=== PATIENT | male | born 1985 | race American Indian/Alaskan Native ===

== ENCOUNTER 2017-08-05 11:46 | Emergency (ER) | payer OTHER ==
--- NOTE | 2017-08-05 12:38 | Emergency Department Report ---
Chief Complaint: Chest Pain Stated Complaint: CHEST PAIN Time Seen by Provider: 08/05/17 12:35 - HPI History of Present Illness: Patient presents to ED with c/o intermittent left sided chest pain and dyspnea with exertion x 3 weeks; this morning in the bathroom after finishing urinating , he had a brief syncopal episode lasting seconds and he fell down, but denies hitting head; denies cough, fevers and N/V - ROS Review of Systems: Negative except for those stated in HPI - Exam Vital Signs: Vital Signs 08/05/17 12:08 Temperature 98.6 F Pulse Rate 71 Respiratory 18 Rate Blood Pressure 100/70 O2 Sat by Pulse 99 Oximetry Physical Exam: NAD RRR CTAB MSE screening note: Focused history and physical exam performed. Due to findings the following was ordered: EKG, labs, CXR Patient to be seen by provider in Main ED ED Disposition for MSE Condition: Stable
[2017-08-05 12:40] LABS: Basophils % (Auto) 1.1 % (0.0-1.8); Eosinophils % (Auto) 4.7 % (0.0-4.3); Hematocrit 41.7 % (35.5-45.6); Hemoglobin 13.9 gm/dl (11.8-15.2); Mean Corpuscular HGB Conc 33 % (32-34); Mean Corpuscular Hemoglobin 30 pg (28-32); Mean Corpuscular Volume 88 fl (84-94); Platelet Count 259 K/mm3 (140-440); Red Blood Count 4.71 M/mm3 (3.65-5.03); Red Cell Distribution Width 13.8 % (13.2-15.2); White Blood Count 5.6 K/mm3 (4.5-11.0)
[2017-08-05 12:54] LABS: Anion Gap 17 mmol/L; BUN/Creatinine Ratio 13; Blood Urea Nitrogen 10 mg/dL (9-20); Carbon Dioxide 26 mmol/L (22-30); Chloride 101.8 mmol/L (98-107); Glucose 84 mg/dL (75-100); Potassium 3.7 mmol/L (3.6-5.0); Sodium 141 mmol/L (137-145)
--- NOTE | 2017-08-05 13:39 | Cat Scan Report ---
CT HEAD WITHOUT CONTRAST: HISTORY: Syncopal episode. TECHNIQUE: Sequential 2.5mm CT images. COMPARISON: 12/04/13. FINDINGS: Cerebral Parenchyma: Within normal limits. Cerebellum: Within normal limits. Brainstem: Within normal limits. Ventricles: Normal. Sella: Normal. Extra-axial spaces: Normal. Basal Cisterns: Normal. Intracranial Hemorrhage: None. Midline Shift: None. Calvarium: Normal. Sinuses: Normal. Mastoid Air Cells: Normal. Visualized Orbits: Normal. IMPRESSION: Cranial CT scan within normal limits.
[2017-08-06 00:24] VITALS: BP 124/77
--- NOTE | 2017-08-06 00:26 | Emergency Department Report ---
ED Chest Pain HPI - General Chief Complaint: Chest Pain Stated Complaint: CHEST PAIN Time Seen by Provider: 08/05/17 12:35 Source: patient Mode of arrival: Ambulatory Limitations: No Limitations - History of Present Illness Initial Comments: Patient is 32 yo old male with no significant past medical history, came Today with complaint of left-sided chest pain sharp in nature radiating to his neck and his back and down to his abdomen. He stated this anything going on for 3 years that get worse in the last 2-3 days. Patient admitted lifting heavy stuff at his job. Denied any shortness of breath fever cough. Patient also mentioned that he had one syncopal episode yesterday. MD Complaint: chest pain Severity scale (0 -10): 8 Quality: sharp Consistency: intermittent - Related Data Previous Rx's Medication Instructions Recorded Last Taken Type Pantoprazole [Protonix] 40 mg PO QDAY #30 tablet 11/16/13 Unknown Rx Ranitidine HCl [Zantac] 300 mg PO QDAY #30 tablet 11/16/13 Unknown Rx LORazepam [Ativan] 1 mg PO QDAY PRN #12 tab 12/04/13 Unknown Rx Metaxalone [Skelaxin] 800 mg PO TID #30 tablet 08/06/17 Unknown Rx Naproxen [Naprosyn] 500 mg PO BID #14 tablet 08/06/17 Unknown Rx Allergies Allergy/AdvReac Type Severity Reaction Status Date / Time No Known Allergies Allergy Unverified 11/15/13 16:13 Heart Score - HEART Score History: Slightly suspicious EKG: Normal Age: < 45 Risk factors: No known risk factors Troponin: < normal limit HEART Score: 0 - Critical Actions Critical Actions: 0-3 pts:0.9-1.7%risk of adverse cardiac event.Candidate for discharge ED Review of Systems ROS: Stated complaint: CHEST PAIN Other details as noted in HPI Comment: All other systems reviewed and negative Constitutional: denies: chills, fever ENT: denies: throat pain Respiratory: denies: cough, orthopnea, shortness of breath, SOB with exertion Cardiovascular: chest pain. denies: palpitations, dyspnea on exertion Gastrointestinal: denies: abdominal pain, nausea, vomiting, diarrhea, constipation, hematemesis, melena Musculoskeletal: denies: back pain Neurological: denies: headache, weakness ED Past Medical Hx - Past Medical History Hx Asthma: Yes Additional medical history: Peptic ulcers - Social History Smoking Status: Current Every Day Smoker Substance Use Type: Alcohol, Marijuana - Medications Home Medications: Home Medications Medication Instructions Recorded Confirmed Last Taken Type Pantoprazole [Protonix] 40 mg PO QDAY #30 tablet 11/16/13 Unknown Rx Ranitidine HCl [Zantac] 300 mg PO QDAY #30 tablet 11/16/13 Unknown Rx LORazepam [Ativan] 1 mg PO QDAY PRN #12 tab 12/04/13 Unknown Rx Metaxalone [Skelaxin] 800 mg PO TID #30 tablet 08/06/17 Unknown Rx Naproxen [Naprosyn] 500 mg PO BID #14 tablet 08/06/17 Unknown Rx ED Physical Exam - General Limitations: No Limitations General appearance: alert, in no apparent distress - Head Head exam: Present: atraumatic, normocephalic - Eye Eye exam: Present: normal appearance - ENT ENT exam: Present: normal exam, normal orophraynx, mucous membranes moist - Neck Neck exam: Present: normal inspection, full ROM. Absent: tenderness, meningismus, lymphadenopathy - Respiratory Respiratory exam: Present: normal lung sounds bilaterally, chest wall tenderness. Absent: respiratory distress, wheezes, rales, rhonchi, stridor, accessory muscle use, decreased breath sounds, prolonged expiratory - Cardiovascular Cardiovascular Exam: Present: regular rate, normal rhythm, normal heart sounds. Absent: bradycardia, tachycardia, systolic murmur, diastolic murmur, rubs - GI/Abdominal GI/Abdominal exam: Present: soft, normal bowel sounds. Absent: distended, tenderness, guarding, rebound, rigid, organomegaly, mass, bruit, pulsatile mass , hernia - Extremities Exam Extremities exam: Present: normal inspection, full ROM, normal capillary refill. Absent: tenderness - Back Exam Back exam: Present: normal inspection, full ROM. Absent: tenderness, CVA tenderness (R), CVA tenderness (L), muscle spasm, paraspinal tenderness, vertebral tenderness, rash noted - Neurological Exam Neurological exam: Present: alert, oriented X3, CN II-XII intact, normal gait, reflexes normal. Absent: abnormal gait, motor sensory deficit - Skin Skin exam: Present: warm, intact, normal color ED Course Vital Signs 08/05/17 08/05/17 08/06/17 12:08 22:10 00:11 Temperature 98.6 F 97.9 F Pulse Rate 71 63 68 Respiratory 18 18 19 Rate Blood Pressure 100/70 124/67 O2 Sat by Pulse 99 99 Oximetry 08/06/17 08/06/17 08/06/17 00:15 00:24 00:27 Temperature 98.8 F Pulse Rate 62 92 H Respiratory 10 L 20 Rate Blood Pressure 124/77 O2 Sat by Pulse 100 100 Oximetry LYN score - Lyn Score Age > 65: (0) No Aspirin use within the Past 7 Days: (0) No 3 or more CAD Risk Factors: (0) No 2 or more Angina events in past 24 hrs: (0) No Known CAD with more than 50% Stenosis: (0) No Elevated Cardiac Markers: (0) No ST Deviation Greater than 0.5mm: (0) No LYN Score: 0 ED Medical Decision Making - Lab Data Result diagrams: 08/05/17 12:21 08/05/17 12:21 - EKG Data -: EKG Interpreted by Md EKG shows normal: sinus rhythm Rate: normal - EKG Data Interpretation: no acute changes - Radiology Data Radiology results: report reviewed CT brain was no acute finding Critical care attestation.: If time is entered above; I have spent that time in minutes in the direct care of this critically ill patient, excluding procedure time. ED Disposition Clinical Impression: Chest pain, Syncope, Costochondritis, acute Disposition: DC-01 TO HOME OR SELFCARE Is pt being admited?: No Condition: Stable Instructions: Chest Pain (ED), Costochondritis (ED), Syncope (ED) Prescriptions: Metaxalone [Skelaxin] 800 mg PO TID #30 tablet Naproxen [Naprosyn] 500 mg PO BID #14 tablet Referrals: PRIMARY CARE, [Primary Care Provider] - 3-5 Days Forms: Work/School Release Form(ED)
--- NOTE | 2017-08-08 07:23 | XRay Report ---
CHEST 2 VIEWS INDICATION: Chest pain, dyspnea on exertion. COMPARISON: 05/10/2015. FINDINGS: PA and lateral chest radiographs demonstrate normal cardiomediastinal silhouette. Clear lungs. Intact bones. CONCLUSION: No acute disease in the chest. Thank you for the opportunity to participate in this patient's care.
== END 2017-08-06 00:41 | disposition home or self-care (01) ==
LOC: ED 11:46
DX: M94.0 Chondrocostal junction syndrome [Tietze] (principal); R55 Syncope and collapse; F17.200 Nicotine dependence, unspecified, uncomplicated; F12.10 Cannabis abuse, uncomplicated
CPT/HCPCS: 36415; 70450; 71020; 80048; 84484; 85025; 93005; 93010; 99285

== ENCOUNTER 2017-12-30 14:42 | Emergency (ER) | payer SELFPAY ==
[2017-12-30] MEDS ORDERED: ASPIRIN PO ONE (15:44)
[2017-12-30 15:57] LABS: Basophils # (Auto) 0.1 K/mm3 (0.0-0.1); Basophils % (Auto) 1.3 % (0.0-1.8); Eosinophils # (Auto) 0.4 K/mm3 (0.0-0.4); Eosinophils % (Auto) 5.9 % (0.0-4.3); Hematocrit 42.6 % (35.5-45.6); Hemoglobin 14.3 gm/dl (11.8-15.2); Lymphocytes # (Auto) 1.9 K/mm3 (1.2-5.4); Mean Corpuscular HGB Conc 34 % (32-34); Mean Corpuscular Hemoglobin 29 pg (28-32); Mean Corpuscular Volume 88 fl (84-94); Monocytes # (Auto) 0.7 K/mm3 (0.0-0.8); Monocytes % (Auto) 10.8 % (0.0-7.3); Platelet Count 230 K/mm3 (140-440); Red Blood Count 4.85 M/mm3 (3.65-5.03)
[2017-12-30 16:12] LABS: BUN/Creatinine Ratio 14; Blood Urea Nitrogen 10 mg/dL (9-20); Hemolysis Index 52
[2017-12-30] MEDS ORDERED: ASPIRIN ONE (18:26)
--- NOTE | 2017-12-30 19:44 | Emergency Department Report ---
ED Chest Pain HPI - General Chief Complaint: Chest Pain Stated Complaint: SYNCOPE Time Seen by Provider: 12/30/17 18:13 Source: patient Mode of arrival: Ambulatory Limitations: No Limitations - History of Present Illness Initial Comments: Patient is a 32-year-old [place] male states that for the past 6 months she's had some chest pain off and on. Patient states this is a random chest pain that lasts anywhere from minutes to hours status of sharp pain that he gets most in the center of his chest. 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 Patient states he just felt dizzy and immediately down and feels like he lost consciousness. Patient states there is no pleuritic chest pain associated with the chest discomfort and states the soreness at this time is 4 out of 10 in severity. Patient denies any cough cold congestion or fevers chills nausea vomiting abdominal pain. - Related Data Previous Rx's Medication Instructions Recorded Last Taken Type Pantoprazole [Protonix] 40 mg PO QDAY #30 tablet 11/16/13 Unknown Rx Ranitidine HCl [Zantac] 300 mg PO QDAY #30 tablet 11/16/13 Unknown Rx LORazepam [Ativan] 1 mg PO QDAY PRN #12 tab 12/04/13 Unknown Rx Metaxalone [Skelaxin] 800 mg PO TID #30 tablet 08/06/17 Unknown Rx Naproxen [Naprosyn] 500 mg PO BID #14 tablet 08/06/17 Unknown Rx Allergies Allergy/AdvReac Type Severity Reaction Status Date / Time No Known Allergies Allergy Unverified 11/15/13 16:13 Heart Score - HEART Score History: Slightly suspicious EKG: Normal Age: < 45 Risk factors: No known risk factors Troponin: < normal limit HEART Score: 0 ED Review of Systems ROS: Stated complaint: SYNCOPE Other details as noted in HPI Comment: All other systems reviewed and negative ED Past Medical Hx - Past Medical History Hx Asthma: Yes Additional medical history: Peptic ulcers - Surgical History Past Surgical History?: No - Social History Smoking Status: Current Some Day Smoker Substance Use Type: None - Medications Home Medications: Home Medications Medication Instructions Recorded Confirmed Last Taken Type Pantoprazole [Protonix] 40 mg PO QDAY #30 tablet 11/16/13 Unknown Rx Ranitidine HCl [Zantac] 300 mg PO QDAY #30 tablet 11/16/13 Unknown Rx LORazepam [Ativan] 1 mg PO QDAY PRN #12 tab 12/04/13 Unknown Rx Metaxalone [Skelaxin] 800 mg PO TID #30 tablet 08/06/17 Unknown Rx Naproxen [Naprosyn] 500 mg PO BID #14 tablet 08/06/17 Unknown Rx ED Physical Exam - General Limitations: No Limitations General appearance: alert, in no apparent distress - Head Head exam: Present: atraumatic, normocephalic - Eye Eye exam: Present: normal appearance - ENT ENT exam: Present: mucous membranes moist - Neck Neck exam: Present: normal inspection - Respiratory Respiratory exam: Present: normal lung sounds bilaterally. Absent: respiratory distress - Cardiovascular Cardiovascular Exam: Present: regular rate, normal rhythm. Absent: systolic murmur, diastolic murmur, rubs, gallop - GI/Abdominal GI/Abdominal exam: Present: soft, normal bowel sounds - Rectal Rectal exam: Present: deferred - Extremities Exam Extremities exam: Present: normal inspection - Back Exam Back exam: Present: normal inspection - Neurological Exam Neurological exam: Present: alert, oriented X3 - Psychiatric Psychiatric exam: Present: normal affect, normal mood - Skin Skin exam: Present: warm, dry, intact, normal color. Absent: rash ED Course Vital Signs 12/30/17 14:50 Temperature 98.4 F Pulse Rate 66 Respiratory 15 Rate Blood Pressure 123/67 O2 Sat by Pulse 98 Oximetry LYN score - Lyn Score Age > 65: (0) No Aspirin use within the Past 7 Days: (0) No 3 or more CAD Risk Factors: (0) No 2 or more Angina events in past 24 hrs: (0) No Known CAD with more than 50% Stenosis: (0) No Elevated Cardiac Markers: (0) No ST Deviation Greater than 0.5mm: (0) No LYN Score: 0 ED Medical Decision Making - Lab Data Result diagrams: 12/30/17 15:52 12/30/17 15:52 Lab Results 12/30/17 12/30/17 12/30/17 Range/Units 15:52 15:52 18:22 WBC 6.1 (4.5-11.0) K/mm3 RBC 4.85 (3.65-5.03) M/mm3 Hgb 14.3 (11.8-15.2) gm/dl Hct 42.6 (35.5-45.6) % MCV 88 (84-94) fl MCH 29 (28-32) pg MCHC 34 (32-34) % RDW 14.0 (13.2-15.2) % Plt Count 230 (140-440) K/mm3 Lymph % (Auto) 32.0 (13.4-35.0) % [place] % (Auto) 10.8 H (0.0-7.3) % Eos % (Auto) 5.9 H (0.0-4.3) % Baso % (Auto) 1.3 (0.0-1.8) % Lymph # 1.9 (1.2-5.4) K/mm3 [place] # 0.7 (0.0-0.8) K/mm3 Eos # 0.4 (0.0-0.4) K/mm3 Baso # 0.1 (0.0-0.1) K/mm3 Seg Neutrophils % 50.0 (40.0-70.0) % Seg Neutrophils # 3.0 (1.8-7.7) K/mm3 Sodium 137 (137-145) mmol/L Potassium 4.2 (3.6-5.0) mmol/L Chloride 101.2 (98-107) mmol/L Carbon Dioxide 24 (22-30) mmol/L Anion Gap 16 mmol/L BUN 10 (9-20) mg/dL Creatinine 0.7 L (0.8-1.5) mg/dL Estimated GFR > 60 ml/min BUN/Creatinine Ratio 14 % Glucose 83 (75-100) mg/dL Calcium 9.0 (8.4-10.2) mg/dL Troponin T < 0.010 < 0.010 (0.00-0.029) ng/mL - EKG Data -: EKG Interpreted by Al - EKG Data Interpretation: other 12/30/17 19:42 Patient's EKG shows a sinus rhythm rate of 60 and normal axis normal intervals no ST segment elevations or depressions tolerate interpretation is 1512. Patient had a repeat EKG done at 1845 which showed no interval change - Medical Decision Making The patient is a 32-year-old black male with atypical chest discomfort. Patient will be sent to cardiology for outpatient follow-up. Patient ruled out for an PR at this time to negative troponins. Patient's heart score is low. Patient safe for discharge. Critical care attestation.: If time is entered above; I have spent that time in minutes in the direct care of this critically ill patient, excluding procedure time. ED Disposition Clinical Impression: Atypical chest pain, Vasovagal syncope Disposition: DC-01 TO HOME OR SELFCARE Is pt being admited?: No Does the pt Need Aspirin: No Condition: Stable Instructions: Chest Pain (ED), Syncope (ED) Referrals: EMILIANA UREÑA MD [Staff Physician] - 3-5 Days
[2017-12-30 19:56] VITALS: BP 126/84
== END 2017-12-30 19:58 | disposition home or self-care (01) ==
LOC: ED 14:42
DX: R07.89 Other chest pain (principal); R55 Syncope and collapse; J45.909 Unspecified asthma, uncomplicated; F17.200 Nicotine dependence, unspecified, uncomplicated
CPT/HCPCS: 36415; 80048; 84484; 85025; 93005; 93010; 99284

== ENCOUNTER 2018-05-30 00:09 | Emergency (ER) | payer SELFPAY ==
[2018-05-30 00:51] VITALS: BP 114/59
[2018-05-30 02:04] LABS: Bilirubin,Urine NEG (Negative); Blood,Urine NEG (Negative); Color,Urine Yellow (Yellow); Mucus,Urine FEW /HPF; Protein,Urine <15 mg/dL mg/dL (Negative)
[2018-05-30 02:11] LABS: BUN/Creatinine Ratio 13; Blood Urea Nitrogen 10 mg/dL (9-20); Calcium 8.6 mg/dL (8.4-10.2); Hemolysis Index 0; Lipase 21 units/L (13-60)
[2018-05-30 02:23] LABS: Basophils # (Auto) 0.1 K/mm3 (0.0-0.1); Basophils % (Auto) 1.1 % (0.0-1.8); Eosinophils # (Auto) 0.3 K/mm3 (0.0-0.4); Eosinophils % (Auto) 4.1 % (0.0-4.3); Hematocrit 39.2 % (35.5-45.6); Hemoglobin 13.2 gm/dl (11.8-15.2); Lymphocytes # (Auto) 2.2 K/mm3 (1.2-5.4); Lymphocytes % (Auto) 35.7 % (13.4-35.0); Mean Corpuscular HGB Conc 34 % (32-34); Mean Corpuscular Hemoglobin 30 pg (28-32); Mean Corpuscular Volume 88 fl (84-94); Monocytes # (Auto) 0.6 K/mm3 (0.0-0.8); Monocytes % (Auto) 9.3 % (0.0-7.3); Platelet Count 250 K/mm3 (140-440); Red Blood Count 4.45 M/mm3 (3.65-5.03); Red Cell Distribution Width 13.9 % (13.2-15.2)
--- NOTE | 2018-05-30 04:09 | Emergency Department Report ---
ED Chest Pain HPI - General Chief Complaint: Chest Pain Stated Complaint: CHEST PAIN Time Seen by Provider: 05/30/18 03:36 Source: patient Mode of arrival: Ambulatory Limitations: No Limitations - History of Present Illness Initial Comments: 33 yo M presents to the ED with complaints of chest pain, dizziness, numbness in extremities, numbness to head, palpitations. States episode lasted approx 30 minutes. Occurred while pt was laying in bed attempting to fall asleep Denies any symptoms at this time. MD Complaint: chest pain -: During the night Onset: during rest Pain Location: other (anterior chest) Pain Radiation: none Severity: moderate Quality: sharp Consistency: now resolved Improves With: nothing Worsens With: nothing re: sense of impending doom - Related Data Previous Rx's Medication Instructions Recorded Last Taken Type Pantoprazole [Protonix] 40 mg PO QDAY #30 tablet 11/16/13 Unknown Rx Ranitidine HCl [Zantac] 300 mg PO QDAY #30 tablet 11/16/13 Unknown Rx LORazepam [Ativan] 1 mg PO QDAY PRN #12 tab 12/04/13 Unknown Rx Metaxalone [Skelaxin] 800 mg PO TID #30 tablet 08/06/17 Unknown Rx Naproxen [Naprosyn] 500 mg PO BID #14 tablet 08/06/17 Unknown Rx Allergies Allergy/AdvReac Type Severity Reaction Status Date / Time No Known Allergies Allergy Unverified 11/15/13 16:13 Heart Score - HEART Score History: Slightly suspicious EKG: Normal Age: < 45 Risk factors: No known risk factors Troponin: < normal limit HEART Score: 0 - Critical Actions Critical Actions: 0-3 pts:0.9-1.7%risk of adverse cardiac event.Candidate for discharge ED Review of Systems ROS: Stated complaint: CHEST PAIN Other details as noted in HPI Comment: All other systems reviewed and negative Constitutional: denies: fever Respiratory: denies: cough, shortness of breath Cardiovascular: chest pain, palpitations Neurological: paresthesias ED Past Medical Hx - Past Medical History Previous Medical History?: Yes Hx Asthma: Yes Additional medical history: Peptic ulcers - Surgical History Past Surgical History?: No - Social History Smoking Status: Never Smoker Substance Use Type: None - Medications Home Medications: Home Medications Medication Instructions Recorded Confirmed Last Taken Type Pantoprazole [Protonix] 40 mg PO QDAY #30 tablet 11/16/13 Unknown Rx Ranitidine HCl [Zantac] 300 mg PO QDAY #30 tablet 11/16/13 Unknown Rx LORazepam [Ativan] 1 mg PO QDAY PRN #12 tab 12/04/13 Unknown Rx Metaxalone [Skelaxin] 800 mg PO TID #30 tablet 08/06/17 Unknown Rx Naproxen [Naprosyn] 500 mg PO BID #14 tablet 08/06/17 Unknown Rx ED Physical Exam - General Limitations: No Limitations General appearance: alert, in no apparent distress, other (asleep on stretcher) - Head Head exam: Present: atraumatic, normocephalic - Eye Eye exam: Present: normal appearance - ENT ENT exam: Present: mucous membranes moist - Neck Neck exam: Present: normal inspection - Respiratory Respiratory exam: Present: normal lung sounds bilaterally. Absent: respiratory distress - Cardiovascular Cardiovascular Exam: Present: regular rate, normal rhythm - GI/Abdominal GI/Abdominal exam: Present: soft. Absent: tenderness - Extremities Exam Extremities exam: Present: normal inspection - Neurological Exam Neurological exam: Present: alert, oriented X3, CN II-XII intact. Absent: motor sensory deficit - Psychiatric Psychiatric exam: Present: normal affect, normal mood - Skin Skin exam: Present: warm, dry, intact, normal color ED Course Vital Signs 05/30/18 00:48 Temperature 98.4 F Pulse Rate 77 Respiratory 17 Rate Blood Pressure 114/59 O2 Sat by Pulse 99 Oximetry LYN score - Lyn Score Age > 65: (0) No 3 or more CAD Risk Factors: (0) No 2 or more Angina events in past 24 hrs: (0) No Known CAD with more than 50% Stenosis: (0) No Elevated Cardiac Markers: (0) No ST Deviation Greater than 0.5mm: (0) No ED Medical Decision Making - Lab Data Result diagrams: 05/30/18 01:27 05/30/18 01:27 - EKG Data -: EKG Interpreted by Nm EKG shows normal: sinus rhythm, axis, intervals, QRS complexes, ST-T waves Rate: bradycardia - EKG Data Interpretation: no acute changes - Radiology Data Radiology results: report reviewed, image reviewed - Medical Decision Making 33-year-old male presents complaining of a 30 minute episode of chest pain dizziness palpitations paresthesias to body. EKG, troponin, chest x-ray normal. Vitals nml. Possible anxiety attack. Patient comfortable at this time , is currently symptom free. Will d/c w/ outpt follow-up. Return precautions given. - Differential Diagnosis anxiety, ACS, chest wall pain, arrythmia Critical care attestation.: If time is entered above; I have spent that time in minutes in the direct care of this critically ill patient, excluding procedure time. ED Disposition Clinical Impression: Chest pain Disposition: - TO HOME OR SELFCARE Is pt being admited?: No Condition: Stable Instructions: Chest Pain (ED), Anxiety (ED) Referrals: PRIMARY CAREMD [Primary Care Provider] - 3-5 Days [facility] [Provider Group] - 3-5 Days Time of Disposition: 06:18
--- NOTE | 2018-05-30 05:06 | XRay Report ---
FINAL REPORT PROCEDURE: XR CHEST ROUTINE 2V TECHNIQUE: PA and lateral chest radiographs were obtained. CPT 68972 HISTORY: chest pain COMPARISON: No prior studies are available for comparison. FINDINGS: Heart: Normal. Mediastinum/Vessels: Normal. Lungs/Pleural space: Normal. Bony thorax: No acute osseous abnormality. Other: IMPRESSION: Normal examination.
== END 2018-05-30 07:15 | disposition home or self-care (01) ==
LOC: ED 00:09
DX: R07.89 Other chest pain (principal); J45.909 Unspecified asthma, uncomplicated
CPT/HCPCS: 36415; 71046; 80048; 81001; 83690; 84484; 85025; 93005; 93010